=== PATIENT | female | born 1960 | race Caucasian/White ===

== ENCOUNTER 2018-01-21 13:26 | Emergency (ER) | payer BC, OTHER ==
[~2018-01-21] VITALS: Ht 162.6 cm; Wt 70.0 kg
[2018-01-21] MEDS ORDERED: methylPREDNISolone sod succ 125mg/2ml vial IV ONE (13:55)
[2018-01-21] MEDS ORDERED: normal saline 1000ML IV soln IVB ONE (13:55)
[2018-01-21] MEDS ORDERED: epiNEPHrine 1 mg/ml inj SQ STA (13:55)
[2018-01-21] MEDS ORDERED: EPIN0.3P8 IM (14:25)
[2018-01-21 15:25] VITALS: BP 146/84
== END 2018-01-21 15:28 | disposition home or self-care (01) ==
LOC: ER 13:26
DX: T78.40XA Allergy, unspecified, initial encounter (principal); Z88.6 Allergy status to analgesic agent; Y92.9 Unspecified place or not applicable
CPT/HCPCS: 96372; 96374; 99284; J0171; J2930; J7030

== ENCOUNTER 2018-03-25 18:21 | Emergency (ER) | payer OTHER ==
[~2018-03-25] VITALS: Ht 162.6 cm; Wt 75.9 kg
[~2018-03-25 18:21] MED LIST: EPIN0.3P8 IM
[2018-03-25] MEDS ORDERED: ondansetron/PF 4mg/2ml inj IV ONE (19:00)
[2018-03-25] MEDS ORDERED: morphine 4 MG/ML inj SYRINge IV ONE (19:00)
[2018-03-25] MEDS ORDERED: normal saline 1000ML IV soln IVB ONE (19:00)
[2018-03-25] MEDS ORDERED: LORazepam 2 mg/ml vial IV ONE (19:00)
[2018-03-25 19:01] LABS: BASOPHILS % (AUTO) 0.3 % (0-1); EOSINOPHILS # (AUTO) 0.3 X10'3 (0-0.9); EOSINOPHILS % (AUTO) 1.9 % (0-6); HEMATOCRIT 41.1 % (35.0-45.0); HEMOGLOBIN 14.2 g/dl (12.0-16.0); LYMPHOCYTES # (AUTO) 4.5 X10'3 (1.1-4.8); LYMPHOCYTES % (AUTO) 33.9 % (21-51); MEAN CORPUSCULAR HEMOGLOBIN 33.6 PG (27.0-31.0); MEAN CORPUSCULAR HGB CONC 34.5 % (33.0-36.5); MEAN CORPUSCULAR VOLUME 97.5 FL (78-98); MEAN PLATELET VOLUME 6.8 FL (7.4-10.4); MONOCYTES # (AUTO) 0.8 X10'3 (0-0.9); MONOCYTES % (AUTO) 5.7 % (2-12); NEUTROPHILS # (AUTO) 7.8 X10'3 (1.8-7.7); NEUTROPHILS % (AUTO) 58.2 % (42-75); PLATELET COUNT 310 X10'3 (140-440); RED BLOOD COUNT 4.22 X10'6 (4.20-5.60); RED CELL DISTRIBUTION WIDTH 12.9 % (11.5-14.5); WHITE BLOOD COUNT 13.4 X10'3 (4.5-11.0)
[2018-03-25 19:07] LABS: ALANINE AMINOTRANSFERASE 62 U/L (12-78); ALBUMIN 3.8 G/DL (3.4-5.0); ALKALINE PHOSPHATASE 87 IU/L (46-116); ANION GAP 12 (8-16); ASPARTATE AMINO TRANSFERASE 52 U/L (10-37); BILIRUBIN,TOTAL 0.6 MG/DL (0.1-1.0); BLOOD UREA NITROGEN 19 MG/DL (7-18); CALCIUM 9.9 MG/DL (8.5-10.1); CHLORIDE 102 MMOL/L (99-107); CREATININE 0.76 MG/DL (0.40-0.90); GLUCOSE 133 MG/DL (70-104); SODIUM 139 MMOL/L (135-145); TOTAL CARBON DIOXIDE 24.8 MMOL/L (24-32); TOTAL PROTEIN 7.7 G/DL (6.4-8.2); eGFR 78 ML/MIN
[2018-03-25 19:20] LABS: PROTHROMBIN TIME 9.7 SECONDS (9.0-12.0)
[2018-03-25 21:14] VITALS: BP 115/70
[2018-03-25 21:33] LABS: URINE HCG NEGATIVE (NEG)
[2018-03-25 21:35] LABS: CLARITY,URINE CLEAR (Clear); COLOR,URINE YELLOW (Yellow); GLUCOSE, URINE NEGATIVE (Neg); KETONES,URINE NEGATIVE (Neg); LEUKOCYTE ESTERASE ,URINE NEGATIVE (Neg); NITRITES, URINE NEGATIVE (Neg); OCCULT BLOOD,URINE NEGATIVE (Neg); PH,URINE 5.5 (4.8-8.0); PROTEIN,URINE NEGATIVE (Neg); UROBILINOGEN,URINE 0.2 E.U/dL (0.2-1.0)
[2018-03-25 21:36] LABS: UA COLLECTION TYPE CLN CATCH MIDSTREAM
== END 2018-03-25 21:16 | disposition home or self-care (01) ==
LOC: ER 18:22
DX: K56.600 Partial intestinal obstruction, unspecified as to cause (principal); R11.2 Nausea with vomiting, unspecified; Z90.49 Acquired absence of other specified parts of digestive tract; Z88.8 Allergy status to other drugs, medicaments and biological substances
CPT/HCPCS: 36415; 74176; 80053; 81003; 81025; 85025; 85610; 96361; 96374; 96375; 99285; J2060; J2270; J2405; J7030

== ENCOUNTER 2019-01-18 13:19 | Emergency (ER) | payer BC, OTHER ==
[~2019-01-18] VITALS: Ht 162.6 cm; Wt 77.3 kg
[2019-01-18 13:42] VITALS: BP 162/102
[2019-01-18] MEDS ORDERED: cetirizine 10mg tablet PO STA (14:48)
[2019-01-18] MEDS ORDERED: triamcinolone acetonide 40mg/ml inj IM ONE (14:50)
[2019-01-18] MEDS ORDERED: EPIN0.3P3 IM (14:58)
[2019-01-18] MEDS ORDERED: CETI10TA15 PO (14:58)
== END 2019-01-18 15:28 | disposition home or self-care (01) ==
LOC: ER 13:20
DX: T63.441A Toxic effect of venom of bees, accidental (unintentional), initial encounter (principal); Z88.8 Allergy status to other drugs, medicaments and biological substances; Z79.2 Long term (current) use of antibiotics; Z79.899 Other long term (current) drug therapy; Z90.49 Acquired absence of other specified parts of digestive tract; Z98.890 Other specified postprocedural states; Y92.89 Other specified places as the place of occurrence of the external cause
CPT/HCPCS: 96372; 99283; J3301